=== PATIENT | male | born 1965 | race Two or more races ===

== ENCOUNTER 2020-06-16 16:17 | Emergency (ER) | payer MEDICAID ==
[~2020-06-16] VITALS: Ht 170.2 cm; Wt 77.1 kg
[2020-06-16 17:47] LABS: Basophils # (auto) 0 10 ^3/uL (0-0.2); Basophils % (auto) 0.2 % (0.0-2.0); Eosinophils # (auto) 0 10 ^3/uL (0-0.8); Eosinophils % (auto) 0.5 % (0.0-7.0); Hematocrit 41.1 % (41.0-53.0); Hemoglobin 13.9 g/dL (13.5-17.5); Lymphocytes # (auto) 1.2 10 ^3/uL (0.4-5.4); Lymphocytes % (auto) 15.2 % (10.0-50.0); Mean Corpuscular Hemoglobin 31.3 pg (28.0-32.0); Mean Corpuscular Hgb Conc. 33.8 g/dL (32.0-36.0); Mean Corpuscular Volume 92.6 fL (80.0-100.0); Monocytes # (auto) 0.4 10 ^3/uL (0-1.3); Monocytes % (auto) 5.7 % (0.0-12.0); Neutrophils % (auto) 78.4 % (37.0-80.0); Platelet Count (auto) 281 10^3/uL (140-450); Red Blood Cells 4.44 10^6/uL (4.5-5.90); Red Cell Distribution Width 13.1 % (11.8-14.3); White Blood Cell 7.6 10^3/uL (4.4-10.8)
[2020-06-16 17:50] LABS: Albumin 3.8 g/dL (3.4-5.0); Amylase 96 U/L (25-115); Anion Gap 7 (5-15); Aspartate Aminotransferase 23 U/L (15-37); BUN/Creatinine Ratio 15.8; Blood Urea Nitrogen 16 mg/dL (7-18); Carbon Dioxide 27 mmol/L (21-32); Chloride 106 mmol/L (98-107); GFR African American 99 mL/min; GFR Non-African American 82 mL/min; Glucose 95 mg/dL (74-106); Lipase 113 U/L (73-393); Magnesium 2.2 mg/dL (1.6-2.6); Potassium 3.5 mmol/L (3.5-5.1); Sodium 140 mmol/L (136-145)
[2020-06-16 17:56] LABS: Alanine Aminotransferase 27 U/L (16-61); Alkaline Phosphatase 92 U/L (45-117); Bilirubin, Total 0.5 mg/dL (0.2-1.0); Total Protein 7.3 g/dL (6.4-8.2)
[2020-06-16 18:15] LABS: INR 0.99 (0.9-1.15); Partial Thromboplastin Time 25.4 sec (23.0-31.2)
[2020-06-16] MEDS ORDERED: IOHEXOL 300 MG/ML 100ML BOTTLE IJ ONE (20:01)
[2020-06-16 21:17] VITALS: BP 133/90
== END 2020-06-16 20:33 | disposition home or self-care (01) ==
LOC: ER 16:17
DX: K59.00 Constipation, unspecified (principal); R10.32 Left lower quadrant pain; F17.210 Nicotine dependence, cigarettes, uncomplicated; Z87.442 Personal history of urinary calculi
CPT/HCPCS: 36415; 71045; 74177; 80053; 82150; 83605; 83690; 83735; 84484; 85025; 85610; 85730; 93005; 99285; Q9967

== ENCOUNTER 2022-01-24 05:22 | Emergency (ER) | payer MEDICAID ==
[~2022-01-24] VITALS: Ht 172.7 cm; Wt 79.4 kg
[2022-01-24] MEDS ORDERED: ONDANSETRON HCL 4 MG/2 ML VIAL IV ONE (05:30)
[2022-01-24] MEDS ORDERED: SODIUM CHLORIDE 0.9% 1,000 ML IV ONE (05:30)
[2022-01-24] MEDS ORDERED: HYDROmorphone HCL 2 MG/ML VL/or syr IV ONE (05:30)
[2022-01-24] MEDS ORDERED: ceFAZolin 1GM/50ML 100 ML IV ONE (06:15)
[2022-01-24] MEDS ORDERED: TETANUS-DIPTH-ACEL PERTUSSIS 0.5ML SYR Tdap IM ONE (06:15)
[2022-01-24 07:09] VITALS: BP 155/99
== END 2022-01-24 07:25 | disposition short-term general hospital (02) ==
LOC: EDBD → ER 05:22
DX: S62.605A Fracture of unspecified phalanx of left ring finger, initial encounter for closed fracture (principal); W23.0XXA Caught, crushed, jammed, or pinched between moving objects, initial encounter; Y93.89 Activity, other specified; Y92.89 Other specified places as the place of occurrence of the external cause; Y99.8 Other external cause status
CPT/HCPCS: 73130; 90471; 90715; 96361; 96365; 96375; 99285; J0690; J1170; J2405; J7030

== ENCOUNTER 2022-01-25 09:05 | Inpatient (IN) | payer MEDICAID ==
[~2022-01-25] VITALS: Ht 175.3 cm; Wt 75.5 kg
[2022-01-25] MEDS ORDERED: SODIUM CHLORIDE 0.9% 1,000 ML IV ONE ×2 (12:30→16:45)
[2022-01-25] MEDS ORDERED: cefTRIAXone 1GM/50ML D5W 50 ML IV ONE (12:30)
[2022-01-25 13:26] LABS: Calcium 8.7 mg/dL (8.5-10.1); Potassium 4.7 mmol/L (3.5-5.1)
[2022-01-25 13:29] LABS: BUN/Creatinine Ratio 17.7
[2022-01-25 13:35] LABS: Basophils # (auto) 0 10 ^3/uL (0-0.2); Basophils % (auto) 0.3 % (0.0-2.0); Eosinophils # (auto) 0.1 10 ^3/uL (0-0.8); Hematocrit 46.1 % (41.0-53.0); Hemoglobin 15.1 g/dL (13.5-17.5); Lymphocytes # (auto) 1.8 10 ^3/uL (0.4-5.4); Lymphocytes % (auto) 27.3 % (10.0-50.0); Mean Corpuscular Hemoglobin 30.6 pg (28.0-32.0); Mean Corpuscular Hgb Conc. 32.7 g/dL (32.0-36.0); Mean Corpuscular Volume 93.8 fL (80.0-100.0); Monocytes # (auto) 0.4 10 ^3/uL (0-1.3); Monocytes % (auto) 6.2 % (0.0-12.0); Neutrophils # (auto) 4.2 10 ^3/uL (1.6-8.6); Neutrophils % (auto) 64.2 % (37.0-80.0); Nucleated Red Blood Cells % 0.1 %; Red Blood Cells 4.91 10^6/uL (4.5-5.90); Red Cell Distribution Width 12.4 % (11.8-14.3); White Blood Cell 6.6 10^3/uL (4.4-10.8)
[2022-01-25] MEDS ORDERED: ceFAZolin 1GM/50ML 50 ML IV ONE (16:00)
[2022-01-25] MEDS ORDERED: ONDANSETRON HCL 4 MG/2 ML VIAL IV PRN (19:00)
[2022-01-25] MEDS ORDERED: ACETAMINOPHEN 325 MG TAB PO PRN (19:00)
[2022-01-25] MEDS: SODIUM CHLORIDE 0.9% 1,000 ML IV SCH (19:00)
[2022-01-25] MEDS ORDERED: MORPHINE SULFATE INJ 2 MG/ml SYRG IV PRN (19:00)
[2022-01-25] MEDS: HYDROcodone-ACET 5/325MG TAB PO PRN (20:02)
[2022-01-25 22:30] VITALS: BP 122/73
[2022-01-26 05:00] VITALS: BP 144/78
[2022-01-26] MEDS: HYDROcodone-ACET 5/325MG TAB PO PRN ×2 (05:08→20:13)
[2022-01-26 05:53] LABS: Potassium 4.4 mmol/L (3.5-5.1)
[2022-01-26 06:02] LABS: Albumin 3.2 g/dL (3.4-5.0); BUN/Creatinine Ratio 19.3; Bilirubin, Total 0.4 mg/dL (0.2-1.0); Calcium 8.2 mg/dL (8.5-10.1); Total Protein 6.2 g/dL (6.4-8.2)
[2022-01-26 07:20] LABS: Basophils # (auto) 0 10 ^3/uL (0-0.2); Basophils % (auto) 0.4 % (0.0-2.0); Eosinophils # (auto) 0.1 10 ^3/uL (0-0.8); Eosinophils % (auto) 2.3 % (0.0-7.0); Hematocrit 43.2 % (41.0-53.0); Hemoglobin 14.5 g/dL (13.5-17.5); Lymphocytes # (auto) 1.5 10 ^3/uL (0.4-5.4); Mean Corpuscular Hgb Conc. 33.6 g/dL (32.0-36.0); Mean Corpuscular Volume 92.2 fL (80.0-100.0); Monocytes # (auto) 0.4 10 ^3/uL (0-1.3); Monocytes % (auto) 6.5 % (0.0-12.0); Neutrophils # (auto) 3.7 10 ^3/uL (1.6-8.6); Neutrophils % (auto) 64.8 % (37.0-80.0); Red Blood Cells 4.68 10^6/uL (4.5-5.90); Red Cell Distribution Width 12.8 % (11.8-14.3); White Blood Cell 5.8 10^3/uL (4.4-10.8)
[2022-01-26 08:45] LABS: INR 0.96 (0.9-1.15); Partial Thromboplastin Time 29.5 sec (24.6-33.4)
[2022-01-26 09:00] VITALS: BP 126/85
[2022-01-26] MEDS ORDERED: fentaNYL CITRATE 100 MCG/2 ML VL ONE (09:33)
[2022-01-26] MEDS ORDERED: PROPOFOL 10 MG/ML 20 ML IV ONE ×2 (09:34→12:20)
[2022-01-26] MEDS ORDERED: SODIUM CHLORIDE LOCK 10 ML ONE (09:34)
[2022-01-26] MEDS ORDERED: ONDANSETRON HCL 4 MG/2 ML VIAL ONE (09:34)
[2022-01-26] MEDS ORDERED: MIDAZOLAM HCL 2MG/2ML 2ml VIAL (1mg/ml) ONE (09:34)
[2022-01-26] MEDS: cefTRIAXone 1GM/50ML D5W 50 ML IV SCH (10:20)
[2022-01-26] MEDS ORDERED: HYDROmorphone HCL 2 MG/ML VL/or syr IV PRN ×2 (11:45)
[2022-01-26] MEDS ORDERED: METOCLOPRAMIDE HCL 5MG/ml INJ 2ml VIAL IV PRN (11:45)
[2022-01-26] MEDS ORDERED: MORPHINE SULFATE 4 MG/ML SYR/VIAL IV PRN (11:45)
[2022-01-26] MEDS ORDERED: ceFAZolin 1GM/50ML 100 ML IV ONE (11:53)
[2022-01-26] MEDS: SODIUM CHLORIDE 0.9% 1,000 ML IV SCH (11:54)
[2022-01-26] MEDS ORDERED: DexAMETHasone SOD PHOS 10MG/1ML VIAL INJ ONE (11:58)
[2022-01-26] MEDS ORDERED: ROPIVACAINE 0.5% (5MG/ML) 20ML AMPULE IJ ONE (12:11)
[2022-01-26 17:00] VITALS: BP 115/72
[2022-01-26 22:00] VITALS: BP 111/74
[2022-01-27] MEDS: SODIUM CHLORIDE 0.9% 1,000 ML IV SCH (04:59)
[2022-01-27 05:13] VITALS: BP 107/70
[2022-01-27 08:20] VITALS: BP 107/70
[2022-01-27 09:00] VITALS: BP 112/65
[2022-01-27] MEDS: cefTRIAXone 1GM/50ML D5W 50 ML IV SCH (10:56)
[2022-01-27] MEDS ORDERED: CEPH-510 PO (12:22)
[2022-01-27] MEDS ORDERED: HYDR-4902 PO (12:22)
[2022-01-27 13:00] VITALS: BP 132/75
[2022-01-27] MEDS: HYDROcodone-ACET 5/325MG TAB PO PRN (15:48)
[2022-01-27 17:00] VITALS: BP 117/81
[2022-01-27 17:52] VITALS: BP 132/75
== END 2022-01-27 18:30 | disposition home or self-care (01) | DRG 316 ==
LOC: ER 09:05 → OVERFLOW 18:38 → EAST 21:48
PROVIDERS: ADMIT Internal Medicine; ATTEND Internal Medicine
PROC: 0X6T0Z2 Detachment at Left Ring Finger, Mid, Open Approach (ICD-10-PCS; principal; 2022-01-26 12:01)
DX: S68.115A Complete traumatic metacarpophalangeal amputation of left ring finger, initial encounter (principal); E88.09 Other disorders of plasma-protein metabolism, not elsewhere classified; E78.5 Hyperlipidemia, unspecified; K59.00 Constipation, unspecified; Z20.822 Contact with and (suspected) exposure to COVID-19; X58.XXXA Exposure to other specified factors, initial encounter; Y93.89 Activity, other specified; Y92.89 Other specified places as the place of occurrence of the external cause; Y99.8 Other external cause status
CPT/HCPCS: 36415; 71045; 73130; 80048; 80053; 85025; 85610; 85730; 96365; G0378; J0690; J0696; J1100; J2250; J2405; J2704